=== PATIENT | female | born 1970 | race Two or more races ===

== ENCOUNTER 2018-07-27 06:00 | Day surgery (SDC) | payer OTHER ==
[~2018-07-27 06:00] MED LIST: VENTOLIN HFA18 GM IH
[2018-07-27] MEDS ORDERED: NAPROXEN SODIU550 M1 PO (08:36)
== END 2018-07-27 10:32 | disposition home or self-care (01) ==
LOC: CIR.AMB 06:00
DX: N95.0 Postmenopausal bleeding (principal)

== ENCOUNTER 2022-01-24 08:04 | Emergency (ER) | payer OTHER ==
[~2022-01-24] VITALS: Ht 170.2 cm; Wt 66.2 kg
[~2022-01-24 08:04] MED LIST changes: +NAPROXEN SODIU550 M1 PO
[2022-01-24] MEDS ORDERED: COZAAR25 MG PO (08:33)
== END 2022-01-24 11:23 | disposition home or self-care (01) ==
LOC: ER 08:04
DX: M25.531 Pain in right wrist (principal); I10 Essential (primary) hypertension; J45.909 Unspecified asthma, uncomplicated

== ENCOUNTER 2022-09-03 08:29 | Outpatient (CLI) | payer OTHER ==
[~2022-09-03 08:29] MED LIST changes: +COZAAR25 MG PO
== END 2022-09-03 08:59 | disposition home or self-care (01) ==
LOC: RAD 08:29
PROVIDERS: ATTEND Orthopaedic Surgery
DX: M25.561 Pain in right knee (principal); M25.562 Pain in left knee
CPT/HCPCS: 73718

== ENCOUNTER 2022-09-26 10:05 | Outpatient (CLI) | payer OTHER | END 2022-09-26 10:30 | disposition home or self-care (01) | LOC: MRI 10:05 | PROVIDERS: ATTEND Orthopaedic Surgery | DX: M25.511 Pain in right shoulder (principal); M75.121 Complete rotator cuff tear or rupture of right shoulder, not specified as traumatic | CPT/HCPCS: 73221 ==

== ENCOUNTER 2024-08-09 12:39 | Outpatient (CLI) | payer OTHER ==
[2024-08-09 14:05] LABS: HEMOGLOBIN 13.1 g/dL (12.0-15.00); MEAN CELL VOLUME 92.9 fL (80.00-100.00); MEAN CORPUSCULAR HEMOGLOBIN 31.2 pg (27.00-32.0); MEAN CORPUSCULAR HGB CONC 33.6 g/dl (32.0-36.0); PLATELET COUNT 317 K/uL (150-450); RED CELL DISTRIBUTION WIDTH 13.6 % (11.5-14.5)
[2024-08-09 14:06] LABS: PH,URINE 7.5 (5.0-8.0); URINE APPEARANCE Clear; URINE BILIRRUBIN Negative (NEGATIVE); URINE BLOOD Negative; URINE COLOR Yellow; URINE GLUCOSE Negative (NEGATIVE); URINE KETONE Negative (NEGATIVE); URINE LEUKOCYTE Trace; URINE NITRATE Negative; URINE PROTEIN Negative (NEGATIVE); URINE UROBILINOGEN 0.2 E.U./dl
[2024-08-09 14:11] LABS: URINE BACTERIA 7.3 uL (0.0-1933); URINE EPITHELIAL CELLS 2.6 uL (0.0-38.8); URINE RBC 15.9 uL (0.0-20.8); URINE WBC 6.6 uL (0.0-23.2)
[2024-08-09 14:37] LABS: COVID-19 AG NEGATIVE (NEGATIVE)
[2024-08-09 14:39] LABS: INFLUENZA A AG NEGATIVE (NEGATIVE)
[2024-08-09 14:40] LABS: ALBUMIN 3.5 gm/dL (3.4-5.0); BILIRUBIN TOTAL 0.29 mg/dL (0.3-1.2); CALCIUM 9.4 mg/dL (8.5-10.1); CREATININE SERUM 0.81 mg/dL (0.55-1.02); GFR 73.14; GLOBULINA 3.5 G/DL (2.4-3.5); POTASSIUM 3.75 mEq/L (3.5-5.1)
[2024-08-09 14:42] LABS: C-REACTIVE PROTEIN 0.53 MG/DL (0.00-0.29)
[2024-08-09 14:54] LABS: ERYTHROCYTE SEDIMENTATION RATE 23 mm/hr; MYCOPLASMA PNEUMONIAE IGM NON REACTIVE (NO REACTIVE)
== END 2024-08-09 14:01 | disposition home or self-care (01) ==
LOC: TOM 12:39 → LAB 12:39 → TOM 14:01
PROVIDERS: ATTEND Specialist
DX: N39.9 Disorder of urinary system, unspecified (principal); D64.9 Anemia, unspecified; E11.65 Type 2 diabetes mellitus with hyperglycemia; J45.998 Other asthma; M35.3 Polymyalgia rheumatica; U07.1 COVID-19; A49.3 Mycoplasma infection, unspecified site; J11.1 Influenza due to unidentified influenza virus with other respiratory manifestations